=== PATIENT | female | born 1960 | race Caucasian/White ===

== ENCOUNTER 2016-10-15 16:45 | Emergency (ER) | payer OTHER ==
--- NOTE | 2016-10-15 16:50 | PDOC ---
Rapid Medical Evaluation Chief Complaint: Back Pain Time Seen by Provider: 10/15/16 16:47 Medical Evaluation: Allergies Allergy/AdvReac Type Severity Reaction Status Date / Time amoxicillin Allergy Mild Itching Verified 02/21/15 12:29 10/15/16 16:48 I have performed a brief in-person evaluation of this patient. The patient presents with a chief complaint of:back pain radiating up her back since yesterday no trauma Pertinent physical exam findings:pain worse with movement I have ordered the following: urinalysis The patient will proceed to the ED for further evaluation.
[2016-10-15 16:52] VITALS: BP 131/81; PULSE 88; TEMP 98; BMI 21.2
[2016-10-15] MEDS ORDERED: KETOROLAC TROMETHAMINE 60 MG/2 ML VIAL IM ONE (17:20)
[2016-10-15] MEDS ORDERED: CYCLOBENZAPRINE HCL 10 MG TABLET (FP) PO ONE (17:20)
[2016-10-15 17:30] LABS: URINE APPEARANCE CLEAR; URINE BILIRUBIN NEGATIVE (NEGATIVE); URINE COLOR LTYELLOW; URINE GLUCOSE (UA) NEGATIVE (NEGATIVE); URINE KETONE TRACE (NEGATIVE); URINE LEUK ESTERASE NEGATIVE (NEGATIVE); URINE NITRITE NEGATIVE (NEGATIVE); URINE PROTEIN NEGATIVE (NEGATIVE); URINE UROBILINOGEN NEGATIVE E.U./dl (0.2-1.0)
[2016-10-15 17:33] LABS: URINE BLOOD 1+ (NEGATIVE)
[2016-10-15 17:36] LABS: URINE MUCUS RARE; URINE RBC 2 /hpf (0-3); URINE WBC 1 /hpf (3-5)
--- NOTE | 2016-10-15 17:43 | PDOC ---
History of Present Illness - General Chief Complaint: Back Pain Stated Complaint: BACK PAIN Time Seen by Provider: 10/15/16 16:47 History Source: Patient Exam Limitations: No Limitations - History of Present Illness Initial Comments: 10/15/16 17:22 Patient is here with complaints of acute onset of low back pain that radiates to her buttocks. Denies trauma, changes in exercise, any heavy lifting or strenuous activity that could've caused problem with her back. Is a housewife . States same situation happened approximately 3 years ago where she required some injections from him medical doctor in [place]. States alleviated pain and has never had a recurrence. [facility] 2 days ago had an onset of the same type of pain but is progressively worsened. Denies fever, denies any dysuria, vaginal drainage, or bowel changes. Has not taken any medication. 10/15/16 19:09 Severity: reports: moderate Pain Location: reports: back Modifying Factors: improves with: None Past History - Travel Traveled outside of the country in the last 30 days: No Close contact w/someone who was outside of country & ill: No - Past Medical History Allergies/Adverse Reactions: Allergies Allergy/AdvReac Type Severity Reaction Status Date / Time amoxicillin Allergy Mild Itching Verified 02/21/15 12:29 Home Medications: Ambulatory Orders Cyclobenzaprine HCl [Flexeril 10 mg] 10 mg PO BID PRN #14 tablet 10/15/16 Other medical history: none - Psycho/Social/Smoking Cessation Hx Anxiety: No Suicidal Ideation: No Smoking History: Never smoked Have you smoked in the past 12 months: No Information on smoking cessation initiated: No Hx Alcohol Use: No Drug/Substance Use Hx: No Substance Use Type: None Review of Systems - Review of Systems Able to Perform ROS?: Yes Is the patient limited Fijian proficient: Yes Constitutional: Yes: Symptoms Reported, See HPI, Malaise HEENTM: Yes: See HPI. No: Symptoms Reported Respiratory: No: Symptoms reported ABD/GI: No: Symptoms Reported Musculoskeletal: Yes: Symptoms Reported, See HPI, Back Pain, Muscle Pain (low back ), Muscle Weakness Integumentary: Yes: See HPI. No: Symptoms Reported, Rash All Other Systems: Reviewed and Negative *Physical Exam - Vital Signs Last Vital Signs Temp Pulse Resp BP Pulse Ox 98.0 F 88 18 131/81 100 10/15/16 16:48 10/15/16 16:48 10/15/16 16:48 10/15/16 16:48 10/15/16 16:48 - Physical Exam General Appearance: Yes: Nourished, Appropriately Dressed, Mild Distress HEENT: positive: ROBE, Normal ENT Inspection, TMs Normal, Pharynx Normal Neck: positive: Supple. negative: Tender Respiratory/Chest: positive: Lungs Clear, Normal Breath Sounds Gastrointestinal/Abdominal: positive: Normal Bowel Sounds, Soft. negative: Tender Musculoskeletal: positive: Normal Inspection, Muscle Spasm (plapable spasm to low back, worse on the right than the left paravertebral spinous muscles and lumbar spine). 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, Fully Oriented, Alert, Normal Mood/ Affect, Normal Response, Motor Strength 5/5 Progress Note - Progress Note Progress Note: Neck spasm, will treat with NSAIDs and cyclobenzaprine *DC/Admit/Observation/Transfer Diagnosis at time of Disposition: Spasm of back muscles - Discharge Dispostion Disposition: HOME Condition at time of disposition: Stable Admit: No - Prescriptions Prescriptions: Cyclobenzaprine HCl [Flexeril 10 mg] 10 mg PO BID PRN #14 tablet PRN Reason: spasm - Patient Instructions Printed Discharge Instructions: DI for Back Spasm Additional Instructions: Rest, no heavy lifting or exercise until pain is resolved Hot soaks to neck and low back as often as possible/hot showers or Jacuzzis No massage or therapy until spasm is gone Continue ibuprofen 2-200 mg tablets every 6 hours for the next 3 days then as needed for pain and swelling Cyclobenzaprine 1-10mg every 8 hours as needed for spasm If not significant improvement within 24 hours with medication and rest regime, followup with private physician for change in medications and /or therapy.
== END 2016-10-15 18:00 | disposition home or self-care (01) ==
LOC: JERFT 16:45
PROC: 3E0233Z Introduction of Anti-inflammatory into Muscle, Percutaneous Approach (ICD-10-PCS; principal; 2016-10-15)
DX: M62.830 Muscle spasm of back (principal)
CPT/HCPCS: 81003; 81015; 84703; 96372; 99281-25

== ENCOUNTER 2016-12-07 22:39 | Emergency (ER) | payer OTHER ==
[2016-12-07 22:52] VITALS: BMI 20.8
--- NOTE | 2016-12-07 23:42 | PDOC ---
History of Present Illness - General Chief Complaint: Pain Stated Complaint: PAIN Time Seen by Provider: 12/07/16 23:42 - History of Present Illness Initial Comments: 56 year old previously healthy female presenting with abdominal pain, chest pain, and back pain for the past 10 days. She states that her symptoms started without inciting event 10 days ago and have been relapsing/ remitting since then. She describes the abdominal pain as a sharp bilateral lower abdominal pain that is worse after eating. She also has some nausea with occasional dry heaving. She denies diarrhea or constipation. Her chest pain is both central and left sided without radiation, sob, diaphoresis, or other concurrent symptoms. Her back pain is right sided but occasionally left sided as well. Denies fevers, chills, cough, or hemoptysis, hematuria, or blood in her stool. 12/08/16 01:28 Past History - Past Medical History Allergies/Adverse Reactions: Allergies Allergy/AdvReac Type Severity Reaction Status Date / Time amoxicillin Allergy Mild Itching Verified 12/08/16 00:35 Home Medications: Ambulatory Orders Nitrofurantoin Macrocrystal [Nitrofurantoin] 100 mg PO BID #14 capsule 12/08/16 Other medical history: Pt denies - Psycho/Social/Smoking Cessation Hx Anxiety: No Suicidal Ideation: No Smoking History: Never smoked Have you smoked in the past 12 months: No Information on smoking cessation initiated: No Hx Alcohol Use: No Drug/Substance Use Hx: No Substance Use Type: None Review of Systems - Review of Systems Comments:: Limited Greenlandic but family translating at bedside. 12/08/16 01:51 Is the patient limited Greenlandic proficient: Yes Constitutional: No: Chills, Diaphoresis, Fever, Loss of Appetite HEENTM: No: Blurred Vision, Recent change in vision Respiratory: No: Cough, Shortness of Breath Cardiac (ROS): Yes: Chest Pain. No: Edema ABD/GI: No: Abdominal Distended, Constipated, Diarrhea, Nausea Neurological: No: Headache *Physical Exam - Vital Signs Last Vital Signs Temp Pulse Resp BP Pulse Ox 97.6 F 73 18 130/83 99 12/07/16 22:49 12/07/16 22:49 12/07/16 22:49 12/07/16 22:49 12/07/16 22:49 - Physical Exam General Appearance: Yes: Nourished, Appropriately Dressed, Apparent Distress, Mild Distress HEENT: positive: EOMI, ROBE, Normal Voice Neck: positive: Trachea midline, Normal Thyroid, Supple. negative: Tender, Rigid Respiratory/Chest: positive: Lungs Clear, Normal Breath Sounds. negative: Chest Tender, Respiratory Distress, Accessory Muscle Use Cardiovascular: positive: Regular Rhythm, Regular Rate, S1, S2. negative: Edema , Murmur Gastrointestinal/Abdominal: positive: Normal Bowel Sounds, Tender (In right lower and left lower quadrant.), Flat, Soft. negative: Organomegaly Musculoskeletal: positive: Normal Inspection, CVA Tenderness (on right side with some right latisimus dorsi tenderness) Extremity: positive: Normal Inspection, Normal Range of Motion Integumentary: positive: Normal Color, Dry, Warm Neurologic: positive: Fully Oriented, Alert ED Treatment Course - LABORATORY CBC & Chemistry Diagram: 12/08/16 00:13 12/08/16 00:13 Medical Decision Making - Medical Decision Making 56 year old female with abdominal pain, chest pain, and back pain. These multiple complaints are nonspecific but with nature of abdominal being post- parandial and location lower abdominal bilaterally we shoudl evaluate for multiple pathologies. Highest on our differential is biliary stone vs. UTI/ Cystitis. We will get a CBC, CMP, UA, and CT abd/pelvis with oral/ IV contrast. 12/08/16 02:00 12/08/16 03:04 Labs significant for UA with 2+ leuk esterase and 8 WBCs. Patient refused abdominal CT because of fatigue and feeling better. She stated that she understood the risks and benefits of leaving without the ultrasound and agreed to follow up with her primary care doctor. We will discharge her with a prescription for nitrofurantoin 100 BID x 7 days. 12/08/16 03:04 *DC/Admit/Observation/Transfer Diagnosis at time of Disposition: UTI (urinary tract infection) - Discharge Dispostion Disposition: HOME Condition at time of disposition: Improved Admit: No - Prescriptions Prescriptions: Nitrofurantoin Macrocrystal [Nitrofurantoin] 100 mg PO BID #14 capsule - Referrals Referrals: Abigail Kaye [Primary Care Provider] - - Patient Instructions Printed Discharge Instructions: Urinary Tract Infection Additional Instructions: You were seen for abdominal pain and eventually refused the CT scan after we discussed the risks and benefits. We will treat you for a potential infection in your urine. Pleased take one pill twice a day for 7 days. Please return if your pain worsens or does not get better in a few days. Please follow up with your primary care physician if you do not want to return to the ED. - Attestations Physician Attestion: 12/08/16 03:11 I, Dr. Kobe Jon, attest that this document has been prepared under my direction and personally reviewed by me in its entirety. I further attest, that it accurately reflects all work, treatment, procedures and medical decision -making performed by me.
--- NOTE | 2016-12-07 23:52 | PDOC ---
Attending Attestation - Resident Resident Name: Kobe Jon - ED Attending Attestation I have performed the following: I have examined & evaluated the patient, The case was reviewed & discussed with the resident, I agree w/resident's findings & plan, Exceptions are as noted - HPI HPI: 56 yo F no significant PMH presnets with 10 days of abdominal pain. She staates that the abdominal pain localizes to the lower abdomen, occurs intermittently. It is associated with low back pain that migrates to the R or L low back intermittently. Denies dysuria, f/c, diarrhea. She states she has had nausea and vomiting x1 day. She has had L-sided chest pain for past day. No respiratory symptoms. - Physicial Exam PE: GENERAL: Awake, alert, and fully oriented, in no acute distress HEAD: No signs of trauma EYES: PERRLA, EOMI, sclera anicteric, conjunctiva clear ENT: Auricles normal inspection, hearing grossly normal, nares patent, oropharynx clear without exudates. Dry mucosa NECK: Normal ROM, supple, no lymphadenopathy, JVD, or masses LUNGS: Breath sounds equal, clear to auscultation bilaterally. No wheezes, and no crackles HEART: Regular rate and rhythm, normal S1 and S2, no murmurs, rubs or gallops ABDOMEN: Soft, +BLQ tenderness, normoactive bowel sounds. No guarding, no rebound. No masses. +B/L CVAT. EXTREMITIES: Normal range of motion, no edema. No clubbing or cyanosis. No cords, erythema, or tenderness NEUROLOGICAL: Cranial nerves II through XII grossly intact. Normal speech, normal gait SKIN: Warm, Dry, normal turgor, no rashes or lesions noted. - Medical Decision Making Pt is well-appearing, however, with multiple areas of abdominal tenderness. Will obtain labs, UA, and CT a/p to further evaluate.
[2016-12-08 00:50] LABS: BASOPHIL 0.8 % (0-2.0); EOSINOPHIL 2.6 % (0-4.5); MCH 25.5 pg (25.7-33.7); MEAN CELL VOLUME 79.8 fl (80-96); MEAN PLT VOLUME 10.2 fl (7.5-11.1); NEUTROPHILS 63.8 % (42.8-82.8); PLATELET COUNT 132 K/MM3 (134-434); RDW 14.7 % (11.6-15.6)
[2016-12-08 00:51] LABS: URINE APPEARANCE CLEAR; URINE BILIRUBIN NEGATIVE (NEGATIVE); URINE BLOOD NEGATIVE (NEGATIVE); URINE COLOR STRAW; URINE GLUCOSE (UA) NEGATIVE (NEGATIVE); URINE KETONE NEGATIVE (NEGATIVE); URINE NITRITE NEGATIVE (NEGATIVE); URINE PROTEIN NEGATIVE (NEGATIVE); URINE UROBILINOGEN NEGATIVE mg/dL (0.2-1.0)
[2016-12-08 00:55] LABS: URINE LEUK ESTERASE 2+ (NEGATIVE)
[2016-12-08 01:01] LABS: URINE MUCUS RARE; URINE RBC 1 /hpf (0-3); URINE WBC 8 /hpf (3-5)
[2016-12-08 01:19] LABS: ALBUMIN 3.6 g/dl (3.4-5.0); ANION GAP 8 (8-16); CALCIUM 8.8 mg/dL (8.5-10.1); CO2 27 mmol/L (21-32); CREATININE 0.5 mg/dL (0.55-1.02); GLUCOSE,RANDOM 92 mg/dL (74-106); SGOT/AST 16 U/L (15-37); SGPT/ALT 19 U/L (12-78)
[2016-12-08 01:20] LABS: ALK PHOS 83 U/L (45-117); BILIRUBIN,TOTAL 0.6 mg/dL (0.2-1.0); TOT PROT 7.1 g/dl (6.4-8.2)
[2016-12-08] MEDS ORDERED: ACETAMINOPHEN 325 MG TABLET (FP) PO ONE (02:42)
[2016-12-08] MEDS ORDERED: ACETAMINOPHEN 325 MG TABLET (FP) ONE (02:47)
[2016-12-08 03:17] VITALS: BP 128/80; PULSE 70; TEMP 97.8
--- NOTE | 2016-12-09 18:38 | EKG ---
Test Reason : Blood Pressure : / mmHG Vent. Rate : 064 BPM Atrial Rate : 064 BPM P-R Int : 132 ms QRS Dur : 090 ms QT Int : 422 ms P-R-T Axes : 013 041 017 degrees QTc Int : 435 ms BASELINE ARTIFACT SSINUS RHYTHM POOR R WAVE PROGRESSION V1-V3, CANNOT RULE OUT ANTEROSEPTAL INFART OF INDETERMINATE AGE NO PREVIOUS ECGS AVAILABLE REPEAT EKG IF CLINICALLY INDICATED Confirmed by PETR BOB MD ([id number]) on 12/09/2016 6:37:54 PM Referred By: Confirmed By:PETR BOB MD
== END 2016-12-08 03:23 | disposition home or self-care (01) ==
LOC: JER 22:39
DX: N39.0 Urinary tract infection, site not specified (principal)
CPT/HCPCS: 36415; 80053; 81003; 81015; 83605; 85025; 93005; 93010; 99283-25

== ENCOUNTER 2017-01-31 09:04 | Emergency (ER) | payer OTHER ==
[2017-01-31 09:19] VITALS: BP 131/77; PULSE 93; TEMP 98.6; BMI 21.4
[2017-01-31] MEDS ORDERED: IBUPROFEN 600 MG TABLET (FP) PO ONE ×2 (09:57→10:00)
--- NOTE | 2017-01-31 09:57 | PDOC ---
History of Present Illness - General Chief Complaint: Cold Symptoms Stated Complaint: FEVER Time Seen by Provider: 01/31/17 09:47 History Source: Patient, Spouse Exam Limitations: No Limitations - History of Present Illness Initial Comments: 01/31/17 09:58 Patient came for evaluation of acute onset of general body aches, fevers and chills, sore throat pain and moist nonproductive cough. Took some NyQuil last night with minimal result. Came to emergency department for further evaluation. Denies fever, denies phlegm production, no nasal drainage. No one else at home is ill now. 01/31/17 14:17 Timing/Duration: reports: getting worse Severity: reports: moderate Associated Symptoms: reports: fever/chills, nasal congestion. denies: shortness of breath Past History - Travel Traveled outside of the country in the last 30 days: No Close contact w/someone who was outside of country & ill: No - Past Medical History Allergies/Adverse Reactions: Allergies Allergy/AdvReac Type Severity Reaction Status Date / Time amoxicillin Allergy Mild Itching Verified 01/31/17 09:09 Home Medications: Ambulatory Orders NK [No Known Home Medication] 01/31/17 Other medical history: denies - Suicide/Smoking/Psychosocial Hx Smoking History: Never smoked Have you smoked in the past 12 months: No Information on smoking cessation initiated: No Hx Alcohol Use: No Drug/Substance Use Hx: No Substance Use Type: None Review of Systems - Review of Systems Able to Perform ROS?: Yes Is the patient limited [place] African proficient: Yes Constitutional: Yes: Symptoms Reported, See HPI, Chills, Fever, Malaise HEENTM: Yes: Symptoms Reported, See HPI, Nose Congestion, Throat Pain, Difficulty Swallowing Respiratory: Yes: Symptoms reported, See HPI, Cough (nonproductive) ABD/GI: Yes: Symptoms Reported, Nausea. No: Vomiting : No: Symptoms Reported Musculoskeletal: Yes: Symptoms Reported, See HPI, Joint Pain Integumentary: Yes: Symptoms Reported, See HPI Neurological: Yes: Symptoms reported, See HPI, Headache All Other Systems: Reviewed and Negative *Physical Exam - Vital Signs Last Vital Signs Temp Pulse Resp BP Pulse Ox 98.6 F 93 H 18 131/77 99 01/31/17 09:07 01/31/17 09:07 01/31/17 09:07 01/31/17 09:07 01/31/17 09:07 - Physical Exam General Appearance: Yes: Nourished, Appropriately Dressed, Apparent Distress HEENT: positive: EOMI, ROBE, Normal ENT Inspection, TMs Normal, Tonsillar Erythema (without, exudate), Nasal Congestion, Rhinorrhea, Sinus Tenderness. negative: Pharynx Normal Neck: positive: Tender, Supple, Lymphadenopathy (R), Lymphadenopathy (L) Respiratory/Chest: positive: Lungs Clear, Normal Breath Sounds Cardiovascular: positive: Regular Rate Gastrointestinal/Abdominal: positive: Normal Bowel Sounds, Soft. 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 Patient instructed to call tomorrow to see if any changes with a type of strep infection for throat and will treat as needed otherwise we'll treat conservatively as there is no other indication for any antibiotics. *DC/Admit/Observation/Transfer Diagnosis at time of Disposition: Upper respiratory tract infection Qualifiers: URI type: unspecified viral URI Qualified Code(s): J06.9 - Acute upper respiratory infection, unspecified - Discharge Dispostion Disposition: HOME Condition at time of disposition: Stable Admit: No - Referrals Referrals: Abigail Kaye [Primary Care Provider] - - Patient Instructions Printed Discharge Instructions: DI for Viral Upper Respiratory Infection -- Adult Additional Instructions: Rest, drink lots of fluids: Teas, water, soups, Pedialyte Saltwater gargles Steamy showers/seem to face break up mucus Avoid contact with others until fevers and cough resolved Lots of handwashing and good hygiene Continue [id number] medications for symptomatic relief Tylenol or Motrin for fever and pain Followup with private physician in one to 2 days as needed Return to emergency department for worsened symptoms, fevers, dehydration Call [facility] tomorrow between the hours of 1 PM and 4 PM for further microbiology reporting [phone] - Post Discharge Activity Forms/Work/School Notes: Back to Work
== END 2017-01-31 11:02 | disposition home or self-care (01) ==
LOC: JERFT 09:04
DX: J06.9 Acute upper respiratory infection, unspecified (principal); B97.89 Other viral agents as the cause of diseases classified elsewhere
CPT/HCPCS: 87070; 87430; 87804; 99281-25

== ENCOUNTER 2018-07-02 12:45 | Emergency (ER) | payer OTHER ==
[2018-07-02 13:14] VITALS: BP 106/76; PULSE 85; TEMP 98; BMI 25.8
[2018-07-02] MEDS ORDERED: DIPHTH,PERTUSS(ACELL),TET 0.5 ML DISP.SYRIN IM ONE ×2 (13:38)
--- NOTE | 2018-07-02 13:51 | PDOC ---
History of Present Illness - General Chief Complaint: Injury Stated Complaint: ARM WOUND Time Seen by Provider: 07/02/18 13:30 - History of Present Illness Initial Comments: 07/02/18 13:46 57-year-old female without comorbidities presents for evaluation of a laceration which occurred while opening a box with a knife. She is not current on tetanus. Past History - Past Medical History Allergies/Adverse Reactions: Allergies Allergy/AdvReac Type Severity Reaction Status Date / Time amoxicillin Allergy Mild Itching Verified 07/02/18 13:11 Home Medications: Ambulatory Orders NK [No Known Home Medication] 01/31/17 - Suicide/Smoking/Psychosocial Hx Smoking History: Never smoked Have you smoked in the past 12 months: No Hx Alcohol Use: No Drug/Substance Use Hx: No Substance Use Type: None Review of Systems - Review of Systems Integumentary: Yes: See HPI *Physical Exam - Vital Signs Last Vital Signs Temp Pulse Resp BP Pulse Ox 98.0 F 85 18 106/76 99 07/02/18 13:11 07/02/18 13:11 07/02/18 13:11 07/02/18 13:11 07/02/18 13:11 - Physical Exam Comments: 07/02/18 13:47 HEAD: NC/AT EYES: Conjuntiva clear MS: Full ROM in all joints without edema NEUROLOGIC: No gross sensory or motor deficits, NVID SKIN: Normal color and temperature no lesions or rashes There is a centimeter laceration on the radial aspect of the left distal forearm. Subcutaneous fat is exposed. There is 5 out of 5 strength with wrist flexion and extension without gross sensorimotor deficits. Moderate Sedation - Procedure Monitoring Vital Signs: Procedure Monitoring Vital Signs Temperature 98.0 F 07/02/18 13:11 Pulse Rate 85 07/02/18 13:11 Respiratory Rate 18 07/02/18 13:11 Blood Pressure 106/76 07/02/18 13:11 O2 Sat by Pulse Oximetry (%) 99 07/02/18 13:11 Medical Decision Making - Medical Decision Making 07/02/18 13:47 Under aseptic technique the wound was injected with 6 mL of 1% lidocaine without epinephrine. After appropriate anesthesia, the wound was explored to its base in a bloodless field there was no identification of a foreign body. Wound was copiously irrigated with normal saline. Edges approximated using 5-0 nylon sutures in an interrupted simple fashion. A total of 3 sutures were placed. A dry sterile dressing was placed. *DC/Admit/Observation/Transfer Diagnosis at time of Disposition: Laceration - Discharge Dispostion Disposition: HOME Condition at time of disposition: Stable Decision to Admit order: No - Referrals Referrals: Abigail Kaye [Primary Care Provider] - Luis Machado MD [Staff Physician] - - Patient Instructions Printed Discharge Instructions: Laceration Repair, DI for Laceration Repair -- Simple Additional Instructions: Your tetanus was updated today. You do not require another tetanus shot for at least 5 years. Please keep the dressing on for the next 48 hours. After 48 hours and may remove the dressing and leave the area open to air. May wash it with soap and water and let it air dry. Return to the emergency room should there be any redness swelling or drainage from the wound or increasing pain. He may follow-up with hand surgery in 1-2 days for wound check and further evaluation and treatment. Return to the emergency room in 10 days for suture removal, Tylenol and Motrin as directed for pain. - Post Discharge Activity
== END 2018-07-02 13:53 | disposition home or self-care (01) ==
LOC: JERFT 12:45
PROC: 3E0234Z Introduction of Serum, Toxoid and Vaccine into Muscle, Percutaneous Approach (ICD-10-PCS; principal; 2018-07-02)
PROC: 0HQEXZZ Repair Left Lower Arm Skin, External Approach (ICD-10-PCS; 2018-07-02)
DX: S58.1 Traumatic amputation at level between elbow and wrist (principal)
CPT/HCPCS: 12001; 90471; 90715; 99281-25

== ENCOUNTER 2018-07-08 14:15 | Emergency (ER) | payer OTHER ==
[2018-07-08 14:31] VITALS: BP 121/74; PULSE 96; TEMP 98.4; BMI 24.2
--- NOTE | 2018-07-08 14:32 | PDOC ---
Rapid Medical Evaluation Medical Evaluation: Allergies Allergy/AdvReac Type Severity Reaction Status Date / Time amoxicillin Allergy Mild Itching Verified 07/02/18 13:11 I have performed a brief in-person evaluation of this patient. The patient presents with a chief complaint of: recently had lac repair last week; c/o of L arm pain (from hand to elbow) x 3-4 days; denies fever, any recent trauma Pertinent physical exam findings: No erythema, no streaking, no fluctuance, bluish discoloration to dorsal aspect of L hand and along volar aspect of L forearm, 2+ L radial pulse I have ordered the following: Nothing The patient will proceed to the ED for further evaluation. 07/08/18 14:28
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
== END 2018-07-08 15:28 | disposition home or self-care (01) ==
LOC: JERFT 14:15
DX: Z48.817 Encounter for surgical aftercare following surgery on the skin and subcutaneous tissue (principal); Z48.02 Encounter for removal of sutures
CPT/HCPCS: 99281-25

== ENCOUNTER 2018-11-23 21:27 | Emergency (ER) | payer OTHER ==
[2018-11-23 22:07] VITALS: BP 139/82; PULSE 89; TEMP 99.4; BMI 23.6
[2018-11-23] MEDS ORDERED: DEXAMETHASONE LIQUID 0.5 MG/5 ML 240 ML BULK BOTTLE PO ONE (22:25)
[2018-11-23] MEDS ORDERED: DEXAMETHASONE SOD PHOSPHATE 10 MG/1 ML VIAL ONE (22:31)
--- NOTE | 2018-11-23 22:32 | PDOC ---
History of Present Illness - General Chief Complaint: Sore Throat Stated Complaint: THROAT PAIN/FEVER Time Seen by Provider: 11/23/18 22:24 History Source: Patient Exam Limitations: No Limitations - History of Present Illness Initial Comments: 11/23/18 22:25 HISTORY OF PRESENT ILLNESS: 58-year-old woman denies medical history of presents emergency department for evaluation of sore throat, fevers and bilateral ear pain for the past 5 days. She states her pain improved after the first 2 days but then came back with fevers and chills. She reports increased throat pain and difficulty swallowing solid foods or liquids. Patient's daughter is here for evaluation of similar symptoms. No recent travel or sick contacts. PAST MEDICAL HISTORY: Denies past medical history SURGICAL HISTORY: Denies ALLERGIES: PCN REVIEW OF SYSTEMS General/Constitutional: see HPI HEENT: see HPI Cardiovascular: Denies chest pain or shortness of breath. Respiratory: Denies cough, wheezing, or hemoptysis. Gastrointestinal: Denies nausea, vomiting, diarrhea or constipation. Denies rectal bleeding. Genitourinary: Denies dysuria, frequency, or change in urination. Musculoskeletal: Denies joint or muscle swelling or pain. Denies neck or back pain. Skin and breasts: Denies rash or easy bruising. Neurologic: Denies headache, vertigo, loss of consciousness, or loss of sensation. Psychiatric: Denies depression or anxiety. Endocrine: Denies increased thirst. Denies abnormal weight change. Hematologic/Lymphatic: Denies anemia, easy bleeding, or history of blood clots. Allergic/Immunologic: Denies hives or skin allergy. Denies latex allergy. PHYSICAL EXAM General Appearance: Well-appearing, appropriately dressed. No apparent distress , no intoxication. HEENT: EOMI, PERRLA, normal voice, TMs normal. No conjunctival pallor. No photophobia, scleral icterus. Oropharynx is erythematous with tonsillar exudate present bilaterally. No lesions are noted. Neck: Supple. Trachea midline. No tenderness, rigidity, carotid bruit, stridor , lymphadenopathy, or thyromegaly. Respiratory/Chest: Lungs CTAB. No shortness of breath, chest tenderness, respiratory distress, accessory muscle use. No crackles, rales, rhonchi, stridor , wheezing, dullness Cardiovascular: RRR. S1, S2. No JVD, murmur, bradycardia, tachycardia. Neurologic: starter mechanic II-XII intact. Fully oriented, alert. Appropriate mood/affect. Motor strength 5/5. No appreciable EOM palsy, facial droop or sensory deficit. Past History - Past Medical History Allergies/Adverse Reactions: Allergies Allergy/AdvReac Type Severity Reaction Status Date / Time amoxicillin Allergy Mild Itching Verified 07/02/18 13:11 Home Medications: Ambulatory Orders Azithromycin [Zithromax 250mg Tablets -] 250 mg PO UTDICT #6 tab 11/23/18 COPD: No DVT: No - Immunization History Immunization Up to Date: No - Suicide/Smoking/Psychosocial Hx Smoking History: Never smoked Have you smoked in the past 12 months: No Hx Alcohol Use: No Drug/Substance Use Hx: No Substance Use Type: None *Physical Exam - Vital Signs Last Vital Signs Temp Pulse Resp BP Pulse Ox 99.4 F 89 20 139/82 97 11/23/18 22:05 11/23/18 22:05 11/23/18 22:05 11/23/18 22:05 11/23/18 22:05 Medical Decision Making - Medical Decision Making 11/23/18 22:32 A/P: 58-year-old woman with pharyngitis Given physical exam, there is a high likelihood streptococcal infection. I will treat the patient with azithromycin as she has a penicillin ALLERGY. Supportive treatment has been discussed with the patient who verbalizes understanding of discharge instructions. Decadron 10 mg orally now Discharge home 11/25/18 22:14 *DC/Admit/Observation/Transfer Diagnosis at time of Disposition: Pharyngitis Qualifiers: Pharyngitis/tonsillitis etiology: unspecified etiology Qualified Code(s): J02.9 - Acute pharyngitis, unspecified - Discharge Dispostion Disposition: HOME Condition at time of disposition: Fair Decision to Admit order: No - Prescriptions Prescriptions: Azithromycin [Zithromax 250mg Tablets -] 250 mg PO UTDICT #6 tab - Referrals Referrals: Abigail Kaye [Primary Care Provider] - - Patient Instructions Additional Instructions: Take azithromycin as prescribed. Salt water garggles. Throw away your toothbrush in 3 days and start using a new toothbrush. No sharing of drinks, utensils or toothbrushes. Take Motrin as directed by cooking appliance repair technician's instructions. Return to ED for worsening fevers, worsening sore throat, chest pain, shortness of breath or any other concerns. - Post Discharge Activity
== END 2018-11-23 22:45 | disposition home or self-care (01) ==
LOC: JER 21:27 → JERFT 21:27
DX: J02.9 Acute pharyngitis, unspecified (principal)
CPT/HCPCS: 99281-25